=== PATIENT | female | born 1985 | race African-American/Black ===

== ENCOUNTER 2017-08-14 10:30 | Emergency (ER) | payer OTHER | END 2017-08-14 11:05 | disposition home or self-care (01) | LOC: ERS 10:30 | DX: M70.51 Other bursitis of knee, right knee (principal) | CPT/HCPCS: 99283 ==

== ENCOUNTER 2022-07-12 22:25 | Emergency (ER) | payer OTHER | END 2022-07-13 00:43 | disposition left against medical advice (07) | LOC: ERS 22:25 | DX: Z53.21 Procedure and treatment not carried out due to patient leaving prior to being seen by health care provider (principal) ==

== ENCOUNTER 2022-07-13 11:51 | Emergency (ER) | payer OTHER ==
[2022-07-13] MEDS ORDERED: Ketorolac Tromethamine 30 MG/ML VIAL ONE (12:23)
[2022-07-13] MEDS ORDERED: Dexameth. Sod Phosp. 10 MG/ML (CHEMO USE ONLY) ONE (12:24)
== END 2022-07-13 12:45 | disposition home or self-care (01) ==
LOC: ERS 11:51
DX: K04.7 Periapical abscess without sinus (principal); F17.290 Nicotine dependence, other tobacco product, uncomplicated
CPT/HCPCS: 96372; 99282; J1100; J1885

== ENCOUNTER 2022-11-18 19:20 | Emergency (ER) | payer OTHER ==
[2022-11-18] MEDS ORDERED: Ketorolac Tromethamine 30 MG/ML VIAL ONE (20:16)
[2022-11-18] MEDS ORDERED: Dexamethasone 4 MG TAB ONE (20:17)
== END 2022-11-18 20:23 | disposition home or self-care (01) ==
LOC: ERS 19:20
DX: M54.31 Sciatica, right side (principal); F17.210 Nicotine dependence, cigarettes, uncomplicated; V89.2XXA Person injured in unspecified motor-vehicle accident, traffic, initial encounter
CPT/HCPCS: 96372; 99283; J1885; J8540

== ENCOUNTER 2024-04-05 16:43 | Emergency (ER) | payer OTHER ==
[2024-04-05] MEDS ORDERED: Ketorolac Tromethamine 30 MG (1 mL) VIAL ONE (17:29)
== END 2024-04-05 18:18 | disposition home or self-care (01) ==
LOC: ERS 16:43
DX: M54.50 Low back pain, unspecified (principal); F17.290 Nicotine dependence, other tobacco product, uncomplicated
CPT/HCPCS: 72100; 96372; J1885